=== PATIENT | male | born 1970 | race Caucasian/White ===

== ENCOUNTER 2019-09-08 11:13 | Outpatient (CLI) | payer OTHER, SELFPAY ==
[2019-09-08 11:32] LABS: Add Urine Microscopic? NO; Appearance Urine Clear (Clear); Basophils Absolute Auto 0.04 K/mm3 (0.00-0.10); Basophils Percent Auto 0.6 % (0.0-1.0); Bilirubin Urine Negative (Negative); Blood Urine Negative (Negative); Color Urine Yellow (Yellow); Eosinophils Absolute Auto 0.27 K/mm3 (0.02-0.50); Eosinophils Percent Auto 4.3 % (1.0-6.0); Glucose Urine UA Negative (Negative); Hematocrit 47.3 % (40.0-54.0); Hemoglobin 17.2 g/dL (14.0-18.0); Immature Granulocyte Absolute 0.03 K/mm3 (0.00-0.00); Immature Granulocyte Percent A 0.5 % (0.0-0.0); Ketones Urine Negative (Negative); Leukocyte Esterase Ur Negative (Negative); Lymphocytes Absolute Auto 1.91 K/mm3 (1.10-4.50); Lymphocytes Percent Auto 30.2 % (18.0-42.0); Mean Corpuscular HGB Conc 36.4 g/dL (32.0-36.0); Mean Corpuscular Hemoglobin 33.7 pg (27.0-31.0); Mean Corpuscular Volume 92.6 fL (78.0-102.0); Mean Platelet Volume 11.2 fl (8.7-11.0); Monocytes Absolute Auto 0.57 K/mm3 (0.10-0.90); Neutrophils Absolute Auto 3.5 K/mm3 (1.7-7.2); Neutrophils Percent Auto 55.4 % (50.0-70.0); Nitrate Urine Negative (Negative); Platelet Count Result 241 K/mm3 (150-420); Protein Urine Negative (Negative); Red Blood Count 5.11 M/mm3 (4.70-6.10); Red Cell Distribution Width 11.9 % (11.6-14.4); Specific Grav Ur 1.015 (1.010-1.020); Urobilinogen Urine 0.2 mg/dL (0.2-1.0); White Blood Count 6.3 K/mm3 (4.8-10.8)
[2019-09-08 12:54] LABS: Alanine Aminotransferase 46 U/L (16-63); Albumin Level 4.2 g/dL (3.4-5.0); Alkaline Phosphatase 36 U/L (46-116); Anion Gap 12.6 mmol/L (7-16); Aspartate Amino Transferase 24 U/L (15-37); Bilirubin,Total 0.6 mg/dL (0.00-1.00); Blood Urea Nitrogen 11 mg/dL (7-18); Carbon Dioxide 29 mmol/L (21-32); Chloride 102 mmol/L (98-108); Cholesterol 136 mg/dL (0-200); Estimated Glomerular Filt Rate > 60; Free T3 3.38 pg/mL (2.18-3.98); Glucose 93 mg/dL (70-99); HDL Direct 55 mg/dL (40-60); LDL Cholesterol Calculated 76 mg/dL (<130); Osmolality Calculated 287 mOsm/kg (285-295); Potassium 4.6 mmol/L (3.5-5.1); Sodium 139 mmol/L (136-145); Thyroid Stimulating Hormone 2.06 uIU/mL (0.36-3.74); Total Protein 7.3 g/dL (6.4-8.2); Triglycerides 25 mg/dL (0-150)
== END 2019-09-08 11:14 | disposition home or self-care (01) ==
PROVIDERS: PCP Internal Medicine; Visit Provider Internal Medicine
DX: E78.2 Mixed hyperlipidemia (principal); I10 Essential (primary) hypertension; R21 Rash and other nonspecific skin eruption
CPT/HCPCS: 36415; 80053; 80061; 81003; 84439; 84443; 84481; 85025; 87101

== ENCOUNTER 2020-06-05 11:44 | Outpatient (CLI) | payer OTHER, SELFPAY ==
[2020-06-05 12:00] LABS: Basophils Absolute Auto 0.03 K/mm3 (0.00-0.10); Basophils Percent Auto 0.5 % (0.0-1.0); Eosinophils Absolute Auto 0.16 K/mm3 (0.02-0.50); Eosinophils Percent Auto 2.6 % (1.0-6.0); Hematocrit 43.2 % (40.0-54.0); Hemoglobin 15.2 g/dL (14.0-18.0); Immature Granulocyte Absolute 0.01 K/mm3 (0.00-0.00); Immature Granulocyte Percent A 0.2 % (0.0-0.0); Lymphocytes Absolute Auto 1.48 K/mm3 (1.10-4.50); Lymphocytes Percent Auto 23.9 % (18.0-42.0); Mean Corpuscular HGB Conc 35.2 g/dL (32.0-36.0); Mean Corpuscular Hemoglobin 32.3 pg (27.0-31.0); Mean Corpuscular Volume 91.7 fL (78.0-102.0); Mean Platelet Volume 10.4 fl (8.7-11.0); Monocytes Absolute Auto 0.36 K/mm3 (0.10-0.90); Monocytes Percent Auto 5.8 % (2.0-11.0); Neutrophils Absolute Auto 4.1 K/mm3 (1.7-7.2); Platelet Count Result 230 K/mm3 (150-420); Red Blood Count 4.71 M/mm3 (4.70-6.10); Red Cell Distribution Width 11.7 % (11.6-14.4); White Blood Count 6.2 K/mm3 (4.8-10.8)
--- NOTE | 2020-06-05 12:06 | ECG_ITS ---
Measurements Intervals [place] Rate: 74 P: 57 FL: 160 QRS: 51 QRSD: 101 T: 15 QT: 350 QTc: 389 Interpretive Statements SINUS RHYTHM INCOMPLETE RIGHT BUNDLE BRANCH BLOCK BORDERLINE ECG Electronically Signed On 06-05-2020 12:21:57 CDT by Jayy Delgado D.O.
[2020-06-05 12:59] LABS: Anion Gap 9 mmol/L (8-16); Blood Urea Nitrogen 14 mg/dL (7-18); Carbon Dioxide 30 mmol/L (21-32); Chloride 100 mmol/L (98-108); Estimated Glomerular Filt Rate > 60; Glucose 103 mg/dL (70-99); Osmolality Calculated 288 mOsm/kg (285-295); Potassium 4.2 mmol/L (3.5-5.1); Sodium 139 mmol/L (136-145)
[2020-06-05 13:06] LABS: Calcium 9.1 mg/dL (8.5-10.1)
== END 2020-06-05 11:45 | disposition home or self-care (01) ==
PROVIDERS: PCP Internal Medicine; Visit Provider Neurological Surgery
DX: Z01.810 Encounter for preprocedural cardiovascular examination (principal)
CPT/HCPCS: 36415; 80048; 85025; 93005

== ENCOUNTER 2020-07-04 08:10 | Outpatient (RCR) | payer OTHER, SELFPAY ==
--- NOTE | 2020-07-04 07:43 | PTOPEVAL ---
Thank you for referring Ck Livingston to [facility].? The patient is scheduled to be seen for therapy? __3__x/week for 12 visits. Please review, sign, date and return this plan of care MAXIMILIAN. I agree with and certify that the following plan of care is medically necessary. Referring Physician Date Admitting Provider: Attending Provider: Hawk Mckinney, Referring Provider: *PT Outpatient Evaluation Start: 07/04/20 06:58 Freq: Status: Active Protocol: Document 07/04/20 06:58 BERNIE (Rec: 07/04/20 07:42 BERNIE [email or web address]) Therapy Assessment Status Assessment Status Assessment Status Evaluation Evaluation Information Problem Diagnosis low back pain, L4-L5 microdisectomy Onset 06/09/20 Subjective Information Pt. reports that he underwent Query Text:As Reported By Patient/ back surgery on 06/09/20. He Family reports that he injured the back while at work lifting an item. He reports that he had pain in the left leg prior to surgery. He reports that since surgery his leg pain has gone away. He states that he still has pain in the low back and feels the low back is weak. He states that he cannot stand or sit for long periods due to pain. He reports that his goal is to decrease his back pain and be able to stand longer. 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 Dominance Right Activity of Daily Living Ability Independent Indoor/Home Mobility Independent Community Mobility Independent Stairs Ability Independent Functional Cognition (Planning, Shopping Independent , Taking Medications) Cooking Yes Cleaning Yes Laundry Yes Shopping Yes Driving Yes Pain Assessment Pain Scale Pain Scale Used Numeric (1 - 10) Self Report Pain Assessment Lower Back Reported Pain Level 2 Pain Description Aching,Soreness Pain Frequency Continuous Lowest Pain Intensity 2 Greatest Pain Intensity 3 Pain Aggravating Factors Exercise/Activity,Lifting, Sitting,Walking,Weight Bearing
--- NOTE | 2020-07-13 09:37 | PCPTNOTE ---
On 07/13/20, the student, [Angelita Parmar, SPT], provided care and completed [employer] documentation on this patient. I have reviewed the student's documentation and agree with the findings.
--- NOTE | 2020-07-14 08:21 | PCPTNOTE ---
On 07/14/20, the student, [Angelita Parmar, SPT], provided care and completed [employer] documentation on this patient. I have reviewed the student's documentation and agree with the findings.
== END 2020-08-01 15:21 | disposition home or self-care (01) ==
LOC: CHSPT 08:10
PROVIDERS: PCP Internal Medicine; Visit Provider Neurological Surgery
DX: M54.5 Low back pain (principal); Z48.89 Encounter for other specified surgical aftercare
CPT/HCPCS: 97014; 97110; 97161; 97530; G0283

== ENCOUNTER 2021-08-28 16:15 | Outpatient (CLI) | payer OTHER, SELFPAY ==
--- NOTE | ~2021-08-28 | XR_ITS ---
EXAMINATION: XR chest 2V 08/28/2021 16:26 INDICATION: Cough and wheezing PROCEDURE: 2 view chest COMPARISON: No prior studies for comparison. FINDINGS: The lungs are clear. The cardiomediastinal silhouette is within normal limits. There are no pleural effusions. There is no pneumothorax suspected. IMPRESSION: 1: NO ACUTE CARDIOPULMONARY DISEASE. Reviewed, dictated and finalized at location A.
== END 2021-08-28 16:16 | disposition home or self-care (01) ==
LOC: CHSIMG 16:17
PROVIDERS: PCP Internal Medicine; Visit Provider Internal Medicine
DX: R05.9 Cough, unspecified (principal); R06.2 Wheezing
CPT/HCPCS: 71046

== ENCOUNTER 2021-09-10 11:02 | Outpatient (CLI) | payer OTHER, SELFPAY ==
[2021-09-10 11:19] LABS: Basophils Absolute Auto 0.05 K/mm3 (0.00-0.10); Basophils Percent Auto 0.8 % (0.0-1.0); Eosinophils Absolute Auto 0.12 K/mm3 (0.02-0.50); Eosinophils Percent Auto 1.8 % (1.0-6.0); Hematocrit 42.6 % (40.0-54.0); Hemoglobin 15.1 g/dL (14.0-18.0); Immature Granulocyte Absolute 0.03 K/mm3 (0.00-0.00); Immature Granulocyte Percent A 0.5 % (0.0-0.0); Lymphocytes Absolute Auto 1.77 K/mm3 (1.10-4.50); Lymphocytes Percent Auto 27.1 % (18.0-42.0); Mean Corpuscular HGB Conc 35.4 g/dL (32.0-36.0); Mean Corpuscular Hemoglobin 33.2 pg (27.0-31.0); Mean Corpuscular Volume 93.6 fL (78.0-102.0); Mean Platelet Volume 11.1 fl (8.7-11.0); Monocytes Absolute Auto 0.54 K/mm3 (0.10-0.90); Monocytes Percent Auto 8.3 % (2.0-11.0); Neutrophils Percent Auto 61.5 % (50.0-70.0); Platelet Count Result 234 K/mm3 (150-420); Red Blood Count 4.55 M/mm3 (4.70-6.10); Red Cell Distribution Width 12.3 % (11.6-14.4); White Blood Count 6.5 K/mm3 (4.8-10.8)
[2021-09-10 11:22] LABS: Add Urine Microscopic? NO; Appearance Urine Clear (Clear); Bilirubin Urine Negative (Negative); Blood Urine Negative (Negative); Color Urine Light Yellow (Yellow); Glucose Urine UA Negative (Negative); Ketones Urine Negative (Negative); Leukocyte Esterase Ur Negative (Negative); Nitrate Urine Negative (Negative); Protein Urine Negative (Negative); Specific Grav Ur <= 1.005 (1.010-1.020); Urobilinogen Urine 0.2 mg/dL (0.2-1.0)
[2021-09-10 12:13] LABS: Alanine Aminotransferase 35 U/L (16-63); Alkaline Phosphatase 43 U/L (46-116); Anion Gap 7 mmol/L (8-16); Aspartate Amino Transferase 20 U/L (15-37); Bilirubin,Total 0.6 mg/dL (0.00-1.00); Blood Urea Nitrogen 10 mg/dL (7-18); Calcium 8.9 mg/dL (8.5-10.1); Carbon Dioxide 27 mmol/L (21-32); Chloride 107 mmol/L (98-108); Cholesterol 158 mg/dL (0-200); Estimated Glomerular Filt Rate > 60; Glucose 100 mg/dL (70-99); HDL Direct 63 mg/dL (40-60); LDL Cholesterol Calculated 89 mg/dL (<130); Osmolality Calculated 291 mOsm/kg (285-295); Potassium 4.2 mmol/L (3.5-5.1); Prostate Specific Antigen 0.5 ng/mL (< OR = 4.0); Sodium 141 mmol/L (136-145); Total Protein 6.9 g/dL (6.4-8.2); Triglycerides 29 mg/dL (0-150)
[2021-09-10 13:49] LABS: Hemoglobin A1C 5.3 % (<5.7)
== END 2021-09-10 11:03 | disposition home or self-care (01) ==
LOC: CHSLAB 11:05
PROVIDERS: PCP Internal Medicine; Visit Provider Internal Medicine
DX: Z00.00 Encounter for general adult medical examination without abnormal findings (principal); E78.2 Mixed hyperlipidemia; I10 Essential (primary) hypertension; Z12.5 Encounter for screening for malignant neoplasm of prostate; R73.01 Impaired fasting glucose
CPT/HCPCS: 36415; 80053; 80061; 81003; 83036; 84153; 85025; G0103

== ENCOUNTER 2021-11-08 15:58 | Outpatient (CLI) | payer OTHER, SELFPAY ==
[2021-11-08 16:36] LABS: Basophils Absolute Auto 0.02 K/mm3 (0.00-0.10); Basophils Percent Auto 0.5 % (0.0-1.0); Eosinophils Absolute Auto 0.07 K/mm3 (0.02-0.50); Eosinophils Percent Auto 1.7 % (1.0-6.0); Hematocrit 41.9 % (40.0-54.0); Immature Granulocyte Absolute 0.01 K/mm3 (0.00-0.00); Immature Granulocyte Percent A 0.2 % (0.0-0.0); Lymphocytes Absolute Auto 1.53 K/mm3 (1.10-4.50); Lymphocytes Percent Auto 37.3 % (18.0-42.0); Mean Corpuscular HGB Conc 35.8 g/dL (32.0-36.0); Mean Corpuscular Hemoglobin 33.4 pg (27.0-31.0); Mean Corpuscular Volume 93.3 fL (78.0-102.0); Mean Platelet Volume 11.5 fl (8.7-11.0); Monocytes Absolute Auto 0.52 K/mm3 (0.10-0.90); Monocytes Percent Auto 12.7 % (2.0-11.0); Neutrophils Percent Auto 47.6 % (50.0-70.0); Platelet Count Result 177 K/mm3 (150-420); Red Blood Count 4.49 M/mm3 (4.70-6.10); Red Cell Distribution Width 11.8 % (11.6-14.4); White Blood Count 4.1 K/mm3 (4.8-10.8)
[2021-11-08 16:53] LABS: Alanine Aminotransferase 37 U/L (16-63); Albumin Level 4.2 g/dL (3.4-5.0); Alkaline Phosphatase 39 U/L (46-116); Anion Gap 8 mmol/L (8-16); Aspartate Amino Transferase 26 U/L (15-37); Bilirubin,Total 0.3 mg/dL (0.00-1.00); Blood Urea Nitrogen 8 mg/dL (7-18); Calcium 8.6 mg/dL (8.5-10.1); Carbon Dioxide 29 mmol/L (21-32); Chloride 101 mmol/L (98-108); Estimated Glomerular Filt Rate > 60; Glucose 89 mg/dL (70-99); Osmolality Calculated 283 mOsm/kg (285-295); Sodium 138 mmol/L (136-145); Total Protein 7.1 g/dL (6.4-8.2)
[2021-11-13 08:06] LABS: Lyme Disease Ab (IgM), Blot Negative (Negative); Lyme Disease Ab(IgG), Blot Negative (Negative)
== END 2021-11-08 15:59 | disposition home or self-care (01) ==
LOC: CHSLAB 16:00
PROVIDERS: PCP Internal Medicine; Visit Provider Nurse Practitioner Family
DX: S70.362A Insect bite (nonvenomous), left thigh, initial encounter (principal); R50.9 Fever, unspecified; R52 Pain, unspecified; W57.XXXA Bitten or stung by nonvenomous insect and other nonvenomous arthropods, initial encounter
CPT/HCPCS: 36415; 80053; 85025; 86617; 86666; 87798

== ENCOUNTER 2022-05-20 16:36 | Outpatient (CLI) | payer OTHER, SELFPAY ==
[2022-05-20 17:02] LABS: Anion Gap 9 mmol/L (8-16); Blood Urea Nitrogen 11 mg/dL (7-18); Calcium 8.9 mg/dL (8.5-10.1); Carbon Dioxide 29 mmol/L (21-32); Chloride 103 mmol/L (98-108); Estimated Glomerular Filt Rate > 60; Glucose 90 mg/dL (70-99); Osmolality Calculated 291 mOsm/kg (285-295); Sodium 141 mmol/L (136-145)
== END 2022-05-20 16:37 | disposition home or self-care (01) ==
LOC: CHSLAB 16:38
PROVIDERS: PCP Internal Medicine; Visit Provider Internal Medicine
DX: R73.01 Impaired fasting glucose (principal)
CPT/HCPCS: 36415; 80048; 83036

== ENCOUNTER 2022-10-15 13:46 | Outpatient (CLI) | payer OTHER, SELFPAY ==
[2022-10-15 14:06] LABS: Basophils Absolute Auto 0.03 K/mm3 (0.00-0.10); Basophils Percent Auto 0.5 % (0.0-1.0); Eosinophils Absolute Auto 0.09 K/mm3 (0.02-0.50); Eosinophils Percent Auto 1.6 % (1.0-6.0); Hematocrit 41.6 % (40.0-54.0); Hemoglobin 14.8 g/dL (14.0-18.0); Immature Granulocyte Absolute 0.02 K/mm3 (0.00-0.00); Immature Granulocyte Percent A 0.4 % (0.0-0.0); Lymphocytes Absolute Auto 1.33 K/mm3 (1.10-4.50); Lymphocytes Percent Auto 23.9 % (18.0-42.0); Mean Corpuscular HGB Conc 35.6 g/dL (32.0-36.0); Mean Corpuscular Hemoglobin 33.1 pg (27.0-31.0); Mean Corpuscular Volume 93.1 fL (78.0-102.0); Mean Platelet Volume 10.8 fl (8.7-11.0); Monocytes Absolute Auto 0.37 K/mm3 (0.10-0.90); Monocytes Percent Auto 6.7 % (2.0-11.0); Neutrophils Absolute Auto 3.7 K/mm3 (1.7-7.2); Neutrophils Percent Auto 66.9 % (50.0-70.0); Platelet Count Result 230 K/mm3 (150-420); Red Blood Count 4.47 M/mm3 (4.70-6.10); Red Cell Distribution Width 11.9 % (11.6-14.4); White Blood Count 5.6 K/mm3 (4.8-10.8)
[2022-10-15 14:07] LABS: Appearance Urine Clear (Clear); Bilirubin Urine Negative (Negative); Blood Urine Negative (Negative); Color Urine Light Yellow (Yellow); Glucose Urine UA Negative (Negative); Ketones Urine Negative (Negative); Leukocyte Esterase Ur Negative LEU/UL (Negative); Nitrate Urine Negative (Negative); Protein Urine Negative (Negative); Specific Grav Ur 1.015 (1.010-1.020); Urobilinogen Urine 0.2 mg/dL (0.2-1.0)
[2022-10-15 14:09] LABS: Add Urine Microscopic? NO
[2022-10-15 14:30] LABS: Hemoglobin A1C 5.2 % (<5.7)
[2022-10-15 14:44] LABS: Alanine Aminotransferase 39 U/L (16-63); Albumin Level 4.1 g/dL (3.4-5.0); Alkaline Phosphatase 39 U/L (46-116); Anion Gap 10 mmol/L (8-16); Aspartate Amino Transferase 19 U/L (15-37); Bilirubin,Total 0.7 mg/dL (0.00-1.00); Blood Urea Nitrogen 14 mg/dL (7-18); Carbon Dioxide 28 mmol/L (21-32); Chloride 104 mmol/L (98-108); Cholesterol 168 mg/dL (0-200); Creatine Kinase 231 U/L (39-308); Estimated Glomerular Filt Rate > 60; Glucose 105 mg/dL (70-99); HDL Direct 72 mg/dL (40-60); LDL Cholesterol Calculated 91 mg/dL (<130); Osmolality Calculated 294 mOsm/kg (285-295); Potassium 4.1 mmol/L (3.5-5.1); Prostate Specific Antigen 0.3 ng/mL (< OR = 4.0); Sodium 142 mmol/L (136-145); Triglycerides 23 mg/dL (0-150)
== END 2022-10-15 13:47 | disposition home or self-care (01) ==
PROVIDERS: PCP Internal Medicine; Visit Provider Internal Medicine
DX: N39.0 Urinary tract infection, site not specified (principal); Z12.5 Encounter for screening for malignant neoplasm of prostate; E78.2 Mixed hyperlipidemia; I10 Essential (primary) hypertension; R73.01 Impaired fasting glucose
CPT/HCPCS: 36415; 80053; 80061; 81003; 82550; 83036; 84153; 85025; G0103

== ENCOUNTER 2024-04-13 11:16 | Outpatient (CLI) | payer OTHER, SELFPAY ==
[2024-04-13 11:34] LABS: Add Urine Microscopic? NO; Appearance Urine Clear (Clear); Bilirubin Urine Negative (Negative); Blood Urine Negative (Negative); Color Urine Light Yellow (Yellow); Glucose Urine UA Negative (Negative); Hematocrit 40.4 % (40.0-54.0); Hemoglobin 14.3 g/dL (14.0-18.0); Ketones Urine Negative (Negative); Leukocyte Esterase Ur Negative (Negative); Mean Corpuscular HGB Conc 35.4 g/dL (32-36); Mean Corpuscular Hemoglobin 32.9 pg (27.0-31.0); Mean Corpuscular Volume 93.1 fL (78.0-102.0); Mean Platelet Volume 10.9 fl (8.7-11.0); Nitrate Urine Negative (Negative); Platelet Count Result 225 K/mm3 (150-420); Protein Urine Negative (Negative); Red Blood Count 4.34 M/mm3 (4.70-6.10); Red Cell Distribution Width 11.8 % (11.6-14.4); Urobilinogen Urine 0.2 mg/dL (0.2-1.0); White Blood Count 5.2 K/mm3 (4.8-10.8)
[2024-04-13 11:49] LABS: Hemoglobin A1C 4.9 % (<5.7)
[2024-04-13 12:05] LABS: Alanine Aminotransferase 37 U/L (16-63); Alkaline Phosphatase 41 U/L (46-116); Anion Gap 9 mmol/L (4-12); Aspartate Amino Transferase 17 U/L (15-37); Bilirubin,Total 0.9 mg/dL (0.00-1.00); Blood Urea Nitrogen 11 mg/dL (7-18); Carbon Dioxide 28 mmol/L (21-32); Chloride 105 mmol/L (98-108); Cholesterol 135 mg/dL (0-200); Creatine Kinase 204 U/L (39-308); Estimated Glomerular Filt Rate > 60; Free T4 Free Thyroxine 0.87 ng/dL (0.76-1.46); Glucose 105 mg/dL (70-99); HDL Direct 64 mg/dL (40-60); LDL Cholesterol Calculated 65 mg/dL (<130); Osmolality Calculated 293 mOsm/kg (285-295); Potassium 4.2 mmol/L (3.5-5.1); Prostate Specific Antigen 0.4 ng/mL (< OR = 4.0); Sodium 142 mmol/L (136-145); Thyroid Stimulating Hormone 1.65 uIU/mL (0.36-3.74); Total Protein 6.8 g/dL (6.4-8.2); Triglycerides 30 mg/dL (0-150)
== END 2024-04-13 11:17 | disposition home or self-care (01) ==
PROVIDERS: PCP Internal Medicine; Visit Provider Internal Medicine
DX: Z00.00 Encounter for general adult medical examination without abnormal findings (principal); Z12.5 Encounter for screening for malignant neoplasm of prostate; R73.01 Impaired fasting glucose
CPT/HCPCS: 36415; 80053; 80061; 81003; 82550; 83036; 84153; 84439; 84443; 85027; G0103